=== PATIENT | female | born 1940 | race Hispanic/Latino ===

== ENCOUNTER 2018-02-14 07:31 | Day surgery (SDC) | payer OTHER ==
[2018-02-12 16:15] LABS: BASOPHILS % (AUTO) 0.5 % (0.0-5.0); EOSINOPHILS % (AUTO) 2.8 % (0.0-8.0); HEMATOCRIT 35.6 % (36-48); LYMPHOCYTES % (AUTO) 26.9 % (21.0-51.0); MEAN CORPUSCULAR HEMOGLOBIN 28.5 pg (27.0-33.0); MEAN CORPUSCULAR HGB CONC 33.1 g/dL (32.0-36.0); MONOCYTES % (AUTO) 5.4 % (3.0-13.0); NEUTROPHILS % (AUTO) 64.4 % (40.0-77.0); PLATELET COUNT (AUTO) 223 K/uL (130-400); RED BLOOD CELL COUNT(AUTO) 4.14 MIL/uL (4.00-5.50); RED CELL DISTRIBUTION WIDTH 14.5 % (11.0-15.5); WHITE BLOOD COUNT (AUTO) 8.5 K/uL (4.8-10.8)
[2018-02-12 16:19] VITALS: BP 163/69
[2018-02-12 16:23] LABS: APPEARANCE,URINE Cloudy (CLEAR); BILIRUBIN,URINE Negative (NEGATIVE); COLOR,URINE Yellow (YELLOW); GLUCOSE, URINE (UA) Negative (NEGATIVE); KETONES,URINE Negative (NEGATIVE); LEUKOCYTE ESTERASE ,URINE Small (NEGATIVE); NITRATE,URINE Negative (NEGATIVE); OCCULT BLOOD,URINE Negative (NEGATIVE); PROTEIN,URINE POS 1+ (NEGATIVE); UROBILINOGEN,URINE 0.2 mg/dL (0.2-1.0)
[2018-02-12 16:31] LABS: CREATININE 0.9 mg/dL (0.5-1.5); INR 0.97 (0.85-1.15); POTASSIUM 4.1 mmol/L (3.5-5.1); PROTHROMBIN TIME 10.2 SEC (9.6-11.6)
[2018-02-12 16:54] LABS: BACTERIA,URINE Few /HPF (None Seen); RBC,URINE None Seen /HPF (0-1); SQUAMOUS EPITHELIAL CELL,UR None Seen /HPF (0-2)
[2018-02-14] VITALS (18 sets, daily range): BP systolic 103–158; BP diastolic 50–75
[~2018-02-14] VITALS: Ht 157.5 cm; Wt 64.8 kg
[~2018-02-14 07:31] MED LIST: AMLO5TAB2 PO; ASPI-1197 PO; GENTAMICIN 80 MG/NS 100 ML PB 100 ML IV PRN; SIMV40TA5 PO; SITA1TAB6 PO; VALS160T29 PO; VITAMIN D3 PO
[2018-02-14] MEDS ORDERED: SODIUM CHLORIDE 0.9% 1000ML 1,000 ML IV ONE (09:00)
[2018-02-14] MEDS: CEFTRIAXONE SODIUM 1 GM IVP PRN ×2 (09:29→12:35)
[2018-02-14] MEDS ORDERED: ISOVUE-370 50ML VIAL IV ONE (11:08)
[2018-02-14] MEDS ORDERED: MIDAZOLAM HCL 1 MG/ML 2ML VIAL ONE (12:05)
[2018-02-14] MEDS ORDERED: GLYCOPYRROLATE 0.2 MG/ML 5 ML VIAL ONE (12:05)
[2018-02-14] MEDS ORDERED: DEXAMETHASONE SOD PHOSPHATE 10MG/ML 1ML VIAL ONE (12:05)
[2018-02-14] MEDS ORDERED: LIDOCAINE PF 2% 5ML ABBOJECT ONE (12:05)
[2018-02-14] MEDS ORDERED: ONDANSETRON HCL 4 MG/2 ML VIAL ONE (12:05)
[2018-02-14] MEDS ORDERED: PROPOFOL 10 MG/ML 20ML VIAL IV ONE (12:06)
[2018-02-14] MEDS ORDERED: FENTANYL CITRATE PF 50 MCG/1 ML 2ML VIAL ONE (12:06)
== END 2018-02-14 15:40 | disposition home or self-care (01) ==
LOC: DAH 07:31
PROVIDERS: ATTEND Urology
DX: N20.1 Calculus of ureter (principal); I10 Essential (primary) hypertension; E11.9 Type 2 diabetes mellitus without complications; E78.5 Hyperlipidemia, unspecified; D64.9 Anemia, unspecified
CPT/HCPCS: 36415; 52356; 71045; 74420; 80048; 81001; 82948 ×2; 85025; 85610; 87088; 93005; A4218; A4354; A4358; C1758; C1769; C1894; C2617; J0696; J1100; J1580; J2001; J2250; J2405; J2704; J3010; J3490; J7030 ×2; Q9967